=== PATIENT | male | born 1980 | race Caucasian/White ===

== ENCOUNTER 2017-12-26 12:45 | Outpatient (CLI) | payer OTHER ==
--- NOTE | 2017-12-26 13:18 | RAD ---
PA AND LATERAL CHEST: Indication: History of dyspnea. FINDINGS: There is mild cardiomegaly. Pulmonary vasculature is within normal limits. The lungs are clear. No ac [place] osseous abnormality is evident. IMPRESSION: Mild cardiomegaly. POS: [facility]
== END 2017-12-26 12:46 | disposition home or self-care (01) ==
LOC: RAD 12:45
PROVIDERS: ATTEND Internal Medicine Critical Care Medicine
DX: R06.00 Dyspnea, unspecified (principal); I51.7 Cardiomegaly
CPT/HCPCS: 71046

== ENCOUNTER 2022-08-02 13:50 | Inpatient (IN) | payer OTHER ==
[~2022-08-02 13:50] MED LIST: Iopamidol-370 76% 500 ML MDV (1 ML CHARGE) ONE
[2022-08-02 15:24] LABS: #Eosinphils 0.1 thou/uL (0.0-0.7); #Monocytes 0.4 thou/uL (0.11-0.59); #Neutrophils 6.4 thou/uL (1.40-6.50); %Basophils 0.5 % (0.0-1.0); %Eosinophils 0.8 % (0.0-10.0); %Lymphocytes 12.4 % (21.0-51.0); %Monocytes 5.1 % (0.0-10.0); %Neutrophils 81.2 % (42.0-75.0); Hemoglobin 16.6 g/dL (14.0-18.0); Mean Corpuscular HGB CONC 33.1 g/dL (32.0-36.0); Mean Corpuscular Hemoglobin 31.8 pg (27.0-31.0); Mean Platelet Volume 8.3 fL (7.4-10.4); Platelet Count 235 10x3/uL (130-400); Red Blood Cell (RBC) Count 5.21 mill/uL (4.70-6.10); White Blood Cell (WBC) Count 7.9 10x3/uL (4.8-10.8)
[2022-08-02 15:45] LABS: ALT (SGPT) 92 U/L (8-55); AST (SGOT) 44 U/L (5-34); Albumin 4.5 g/dL (3.5-5.0); Alkaline Phosphatase 50 U/L (40-110); Anion Gap 13 mmol/L (10-20); BUN (Urea Nitrogen) 14 mg/dL (8.9-20.6); Bilirubin, Total 0.8 mg/dL (0.2-1.2); Calc. Creatinine Clearance 0 mL/min (70-130); Calcium 9.6 mg/dL (7.8-10.44); Carbon Dioxide 26 mmol/L (22-29); Chloride 104 mmol/L (98-107); Estimated GFR 65; Globulin 2.6 g/dL (2.4-3.5); Glucose 85 mg/dL (70-105); Potassium 4.3 mmol/L (3.5-5.1); Protein, Total 7.1 g/dL (6.0-8.3); Sodium 139 mmol/L (136-145)
[2022-08-02] MEDS ORDERED: Mag-Al 1200 mg/1200 mg/30 ML UDCUP ONE (16:36)
[2022-08-02] MEDS ORDERED: Aspirin Chewable 81 MG TAB ONE (17:25)
[2022-08-02] MEDS ORDERED: Furosemide 40 MG/4 ML VIAL ONE (17:25)
[2022-08-02 18:26] LABS: Lipase 16 U/L (8-78); Magnesium 2.1 mg/dL (1.6-2.6)
[2022-08-02 18:47] LABS: CKMB 3.7 ng/mL (0-6.6)
[2022-08-02 19:30] LABS: Troponin I 0.027 ng/mL (< 0.028)
[2022-08-02 21:54] LABS: Troponin I 0.025 ng/mL (< 0.028)
[2022-08-03 05:12] LABS: #Basophils 0.1 thou/uL (0.0-0.2); #Eosinphils 0.1 thou/uL (0.0-0.7); #Lymphocytes 1.6 thou/uL (1.20-3.40); #Monocytes 0.6 thou/uL (0.11-0.59); #Neutrophils 4.8 thou/uL (1.40-6.50); %Basophils 0.8 % (0.0-1.0); %Lymphocytes 22.2 % (21.0-51.0); %Monocytes 8.7 % (0.0-10.0); %Neutrophils 67.3 % (42.0-75.0); Mean Corpuscular HGB CONC 32.7 g/dL (32.0-36.0); Mean Corpuscular Volume 97.9 fl (78.0-98.0); Mean Platelet Volume 8.2 fL (7.4-10.4); Platelet Count 200 10x3/uL (130-400); RBC Distribution Width 12.9 % (11.5-14.5); Red Blood Cell (RBC) Count 4.99 mill/uL (4.70-6.10); White Blood Cell (WBC) Count 7.2 10x3/uL (4.8-10.8)
[2022-08-03 05:30] LABS: ALT (SGPT) 87 U/L (8-55); AST (SGOT) 35 U/L (5-34); Albumin 4.1 g/dL (3.5-5.0); Alkaline Phosphatase 46 U/L (40-110); Anion Gap 12 mmol/L (10-20); BUN (Urea Nitrogen) 14 mg/dL (8.9-20.6); Bilirubin, Total 0.7 mg/dL (0.2-1.2); Calc. Creatinine Clearance 147 mL/min (70-130); Carbon Dioxide 25 mmol/L (22-29); Chloride 105 mmol/L (98-107); Estimated GFR 73; Globulin 2.4 g/dL (2.4-3.5); Glucose 95 mg/dL (70-105); Magnesium 2.2 mg/dL (1.6-2.6); Potassium 3.6 mmol/L (3.5-5.1); Protein, Total 6.5 g/dL (6.0-8.3); Sodium 138 mmol/L (136-145)
[2022-08-03] MEDS: Furosemide 40 MG/4 ML VIAL SLOW IVP SCH ×2 (06:24→17:00)
[2022-08-03 06:34] VITALS: BMI 46.8
[2022-08-03] MEDS ORDERED: Albuterol 200 PUFF (6.7GM INHALER) INH PRN (07:28)
[2022-08-03] MEDS ORDERED: Communication Order-Pharmacy FS SCH (15:00)
[2022-08-03] MEDS ORDERED: Sodium Chloride 0.9% 1,000 ML IV SCH ×2 (15:00→16:45)
[2022-08-03] MEDS ORDERED: Nitroglycerin 50 MG/250 ML BOT 250 ML ONE (15:08)
[2022-08-03] MEDS ORDERED: Verapamil 5 MG/2 ML VIAL ONE (15:08)
[2022-08-03] MEDS ORDERED: Adenosine 6 MG/2 ML VIAL ONE (15:08)
[2022-08-03] MEDS ORDERED: Heparin 10,000 UNITS/ 10 ML VIAL ONE (15:08)
[2022-08-03] MEDS ORDERED: Lidocaine 1% (PF) 30 ML VIAL ONE (15:08)
[2022-08-03] MEDS ORDERED: Midazolam HCl 2 mg/2 ml Vial ONE (16:12)
[2022-08-03] MEDS ORDERED: fentaNYL 50 mcg/mL 1 mL Vial ONE (16:13)
[2022-08-03] MEDS ORDERED: Nitroglycerin 0.4 MG TAB (25 Tab Bottle) SL PRN (16:42)
[2022-08-03] MEDS ORDERED: Sodium Chloride 0.9% 200 ML IV PRN (16:42)
[2022-08-03] MEDS ORDERED: Acetaminophen/Codeine 30-300mg Tablet PO PRN ×2 (16:42)
[2022-08-03] MEDS: Sacubitril 24MG/Valsartan 26 MG TAB PO SCH (21:41)
[2022-08-04] MEDS: Furosemide 40 MG/4 ML VIAL SLOW IVP SCH (06:24)
[2022-08-04 07:31] LABS: Anion Gap 14 mmol/L (10-20); BUN (Urea Nitrogen) 15 mg/dL (8.9-20.6); Calc. Creatinine Clearance 121 mL/min (70-130); Calcium 9.4 mg/dL (7.8-10.44); Carbon Dioxide 28 mmol/L (22-29); Chloride 101 mmol/L (98-107); Estimated GFR 60; Glucose 91 mg/dL (70-105); Iron 59 ug/dL (65-175); Iron Binding Capacity, Total 366 mcg/dL (261-462); Iron Binding Capacity, Total 370 mcg/dL (261-462); Potassium 4.2 mmol/L (3.5-5.1); Sodium 139 mmol/L (136-145)
[2022-08-04 07:32] LABS: Iron 61 ug/dL (65-175)
[2022-08-04] MEDS: Sacubitril 24MG/Valsartan 26 MG TAB PO SCH (09:20)
[2022-08-04 15:47] VITALS: BP 120/60; TEMP 98.5
== END 2022-08-04 17:06 | disposition home or self-care (01) | DRG 287 ==
LOC: ERS 13:50 → 2SW 17:56 → OBSVTOIN 08-03 15:33
PROVIDERS: ADMIT Hospitalist; ATTEND Internal Medicine
PROC: 4A023N7 Measurement of Cardiac Sampling and Pressure, Left Heart, Percutaneous Approach (ICD-10-PCS; principal; 2022-08-03)
PROC: B2111ZZ Fluoroscopy of Multiple Coronary Arteries using Low Osmolar Contrast (ICD-10-PCS; 2022-08-03)
PROC: B2151ZZ Fluoroscopy of Left Heart using Low Osmolar Contrast (ICD-10-PCS; 2022-08-03)
DX: I50.21 Acute systolic (congestive) heart failure (principal); I42.8 Other cardiomyopathies; Z68.42 Body mass index [BMI] 45.0-49.9, adult; I47.29 Other ventricular tachycardia; I42.0 Dilated cardiomyopathy; J45.909 Unspecified asthma, uncomplicated; E66.01 Morbid (severe) obesity due to excess calories; E78.5 Hyperlipidemia, unspecified; N18.9 Chronic kidney disease, unspecified; G47.33 Obstructive sleep apnea (adult) (pediatric); E88.89 Other specified metabolic disorders; Z82.49 Family history of ischemic heart disease and other diseases of the circulatory system; Z79.51 Long term (current) use of inhaled steroids; R74.8 Abnormal levels of other serum enzymes
CPT/HCPCS: 36415; 71275; 80048; 80053; 82553; 83540; 83550; 83690; 83735; 83880; 84443; 84484; 85025; 93005; 93306; 93458; 93798; 94760; 96374; 96376; 99152; C1769; C1894; G0378; J0153; J1644; J1940; J2001; J2250; J3010; J7050; Q9967

== ENCOUNTER 2024-02-23 13:52 | Outpatient (CLI) | payer OTHER | END 2024-02-23 13:53 | disposition home or self-care (01) | LOC: BICULT 13:52 | PROVIDERS: ATTEND Physician Assistant | DX: E04.1 Nontoxic single thyroid nodule (principal) | CPT/HCPCS: 76536 ==